=== PATIENT | female | born 1960 | race Caucasian/White ===

== ENCOUNTER 2017-12-04 00:40 | Day surgery (SDC) | payer OTHER ==
[2017-12-04] VITALS (10 sets, daily range): BP systolic 86–129; BP diastolic 54–82
[~2017-12-04] VITALS: Ht 149.9 cm; Wt 85.3 kg
[~2017-12-04 00:40] MED LIST: ACET-1966 PO; AMOX-559 PO; CEP500 PO; CYC10 PO; DILT120C72 PO; DOC100 PO; FLU150 PO; FLUT16SP19; FLUT16SP19 NS; FLUT9.9S; GOLYTE PO; HYDR-6045 RC; LAXATIVE OF CHOICE; LEVO-85 PO; LOR5/325 PO; LOR75 PO; MECL25TA9 PO; METR-160 PO; NITR-105 PO; OFF COUMADIN; ONDA-2 PO; ONDA4TAB PO; OXYC-944 PO; Return to work; TRIA15CR40 TP; WARF-12 PO; WARF4TAB54 PO
[2017-12-04 06:22] LABS: PLATELET COUNT, AUTOMATED 243 K/uL (150-450)
[2017-12-04 06:39] LABS: INR 1.01
[2017-12-04] MEDS ORDERED: NORMOSOL R SOLN(*) 1000 ML BAG 1,000 ML IV PRN (06:45)
[2017-12-04] MEDS ORDERED: FAMOTIDINE 20 MG TAB PO ONE (06:45)
[2017-12-04] MEDS ORDERED: MIDAZOLAM 2 MG/2 ML VIAL IVP ONE (06:45)
[2017-12-04] MEDS ORDERED: AMPICILLIN/SULBACT (*) 3 GM VL 3 GM in NS(*) 0.9% 100 ML BAG 100 ML IVPB ONE (06:45)
[2017-12-04] MEDS ORDERED: LIDOCAINE/SOD BICARB 8.4% SYR ID ONE (06:45)
[2017-12-04] MEDS ORDERED: LIDOCAINE MPF 1% 5 ML VIAL ONE (07:13)
[2017-12-04] MEDS ORDERED: DEXAMETHASONE SOD 4 MG/ML VIAL ONE (07:13)
[2017-12-04] MEDS ORDERED: ONDANSETRON 4 MG/2 ML VIAL ONE (07:13)
[2017-12-04] MEDS ORDERED: ROCURONIUM BROM 10 MG/ML 10 ML ONE (07:13)
[2017-12-04] MEDS ORDERED: PROPOFOL EMUL(*) 10MG/ML 20 ML 20 ML ONE (07:13)
[2017-12-04] MEDS ORDERED: SUGAMMADEX SOD 200 MG/2 ML SDV ONE (07:13)
[2017-12-04] MEDS ORDERED: fentaNYL CITR 250 MCG/5 ML AMP ONE (07:14)
[2017-12-04] MEDS ORDERED: KETAMINE HCL 200 MG/20 ML MDV ONE (07:16)
[2017-12-04] MEDS ORDERED: ROPIVACAINE 0.5% 20 ML VIAL ONE (07:35)
[2017-12-04] MEDS ORDERED: GLYCOPYRROLATE 0.2 MG/ML SDV ONE (07:45)
[2017-12-04] MEDS ORDERED: INDOCYANINE GREEN 25 MG VIAL IVP ONE (08:06)
[2017-12-04] MEDS ORDERED: OXYC-854 PO (09:51)
[2017-12-04] MEDS ORDERED: DOCU-416 PO (09:51)
--- NOTE | 2017-12-04 09:54 | Short(Outpt) Discharge Summary ---
Discharge Summary Reason for Hosp/Final Diag: (1) Cholelithiasis Status: Chronic Hospital Course & Plan: Colonoscopy with polypectomy x1 and robotic cholecystectomy completed without problems. (2) Diverticulitis of sigmoid colon Status: Resolved Departure Discharge to: Home, Self Care Discharge Instructions Home Meds Active Scripts Docusate Sodium (COLACE) 100 Mg Capsule, 1 CAP PO BID, #30 CAP 0 Refills TAKE WITH A FULL GLASS OF WATER Prov:HUNTER GARZA MD 12/04/17 Oxycodone Hcl/Acet 5/325 Mg (ENDOCET 5-325 TABLET) 1 Each Tablet, 1-2 TAB PO Q4H Y for PAIN, #30 TAB 0 Refills Prov:HUNTER GARZA MD 12/04/17 Peg/Electrolytes (GOLYTELY SOLUTION) 4,000 Ml Soln, 1 GAL PO ONCE, #1 GAL 0 Refills Prov:HUNTER GARZA MD 12/02/17 Warfarin Sodium (WARFARIN SODIUM) 4 Mg Tablet, 4 MG PO QDAY, #90 TAB 2 Refills Prov:ERROL ADAM MD 10/09/17 Reported Medications Acetaminophen (TYLENOL) 325 Mg Tablet, 325 MG PO PRN Y for PAIN, TAB 11/27/17 Fluticasone Prop 50 Mcg Ns (FLONASE 50 MCG NS) 16 Gm Gay.susp, 1 SPRAY NS QDAY , BOT 11/27/17 Follow up Referrals: General Surgery - 12/23/17 @ Surgery, General with Hunter Garza Md You have a follow up appointment scheduled with Dr. Garza on 12/23/17, at 11: 45am. Diet: Regular Activity: As Tolerated Special Instructions: You may remove the white surgical dressings on 12/06/17, then you can shower. After showering, leave the incisions open to air but leave the steristrips in place until they fall off on their own. Do not immerse the incisions for 2 weeks. You can start taking your coumadin on , 12/04/17. Problem Qualifiers (1) Cholelithiasis: Cholelithiasis location: gallbladder Cholecystitis presence: without cholecystitis Biliary obstruction: without biliary obstruction Qualified Codes: K80.20 - Calculus of gallbladder without cholecystitis without obstruction HUNTER GAZRA MD Dec 04, 2017 09:53
[2017-12-04] MEDS ORDERED: PROMETHAZINE 25 MG/ML 1 ML AMP ONE (10:00)
--- NOTE | 2017-12-04 10:02 | Post Operative Progress Note ---
Post Operative Progress Note Date: Dec 04, 2017 Time: 09:54 Surgeon: Marlon Dictation number: [id number] Anesthesia: GETA by Dr. Carlisle Pre-Op Diagnosis: Recent bout of sigmoid diverticulitis Symptomatic gallstones Post-Op Diagnosis: TOYIN Findings: Rectal polyp Sigmoid diverticulosis Excellent bowel prep GB full of large gallstones Procedure(s): Colonoscopy with snare polypectomy x1 Robotic lap sharif Specimen Removed:(May be N/A): Rectal polyp GB and contents Complications: None Fluids: See anesthesia record Estimated Blood Loss: Minimal Date OP Note Dictated: Dec 04, 2017 Time OP Note Dictated: 09:55 HUNTER GARZA MD Dec 04, 2017 10:02
[2017-12-04] MEDS ORDERED: fentaNYL CITR 100 MCG/2 ML AMP ONE ×2 (10:04→10:33)
--- NOTE | 2017-12-04 17:12 | OPERATIVE REPORT 1 ---
EVENT DATE: December 04, 2017 SURGEON: Calixto Mason MD ANESTHESIOLOGIST: Eric Melgar MD ANESTHESIA: General endotracheal anesthesia. PREOPERATIVE DIAGNOSES 1. Recent bout of diverticulitis. 2. Symptomatic gallstones. POSTOPERATIVE DIAGNOSES 1. Recent bout of diverticulitis. 2. Symptomatic gallstones. 3. Rectal polyp. PROCEDURES PERFORMED 1. Colonoscopy with snare polypectomy from rectum. 2. Robotic cholecystectomy. COMPLICATIONS None. CONDITION Stable. BLOOD LOSS Minimal. FINDINGS This patient has sigmoid diverticulosis, and she had a 1 cm semi-pedunculated polyp in her colon, but otherwise her colonoscopy was unremarkable. I was able to make it all the way around into the cecum without any problems. The prep was excellent. The gallbladder was full of stones, but no obvious active inflammation. SPECIMENS 1. Rectal polyp. 2. Gallbladder and contents. INDICATIONS This is a 57-year-old female whom I have been following for over a year with intermittent abdominal pain. It was also around her right flank and back, but she was somewhat reluctant to proceed with cholecystectomy even though ultrasound showed gallstones in her gallbladder. Ultimately after her symptoms persisted, she consented to cholecystectomy. She also had a bout sigmoid diverticulitis six weeks ago, and so she was requesting a colonoscopy as she has never had one. DESCRIPTION OF PROCEDURE The patient was brought to the operating room and placed supine on the operating table. General endotracheal anesthesia was administered. The colonoscope was assessed to ensure it was completely functional. Digital rectal exam was completed and was unremarkable. The colonoscope was lubricated and inserted into the rectum through her anus. I advanced the scope all the way through the cecum without any problems and slowly withdrew the scope. I looked at all mucosal surfaces for any abnormalities. In the sigmoid colon, she had numerous uncomplicated-looking diverticula. In the rectum, there was a 1 cm semi-pedunculated polyp which was removed with the snare. Retroflex view in the rectum revealed no other abnormalities. Total withdrawal time was 10 minutes. I advanced the scope all the way back up into the cecum and then sucked out as much of the CO2 as I could in preparation for the surgery. The scope was withdrawn from her body. Her abdomen was prepped and draped in a sterile fashion. Another timeout was completed. I scrubbed in and then injected 0.5% ropivacaine plain into her infraumbilical skin. I made a curvilinear smiley face type incision in her inferior umbilical rim and dissected down through the dermis and subcutaneous fat. I identified the midline fascia. I made a vertical incision in the midline fascia, but found it difficult to get into her abdomen. Her previous abdominoplasty disrupted her normal anatomy. After multiple attempts, I decided to inject some anesthetic in the left upper quadrant just inferior to the costal margin and lateral to the mid clavicular line. I made an 8 mm incision there and used a Veress needle hooked up to insufflation, penetrated the peritoneal cavity, and insufflated the abdomen to a pressure of 15 mmHg. I then used an optical port and was able to gain entry into her abdominal cavity. Then, I was able to inspect the midline. Using this technique, I was able to more safely get into the abdominal cavity, and I was essentially already there. Once I confirmed I was in the peritoneal cavity, and there were no obvious signs of any entry-related injury, I then placed two interrupted 0 Vicryl sutures transversely through the vertical fascial defect and inserted a 12 mm Malcom type robotic port through this wound and secured it in place with the sutures. I then placed another robotic port in the left mid abdomen half way between the left upper quadrant and the umbilical port and then another 8 mm port in the right mid abdomen. We then positioned the table in reverse Trendelenburg and planed towards the patient's left. We then docked the robot and targeted the robot. We inserted all of the instruments and the cameras. After everything was set up, I scrubbed out and went to the console. I then grasped the fundus of the gallbladder and retracted it towards the patient's right shoulder. The infundibulum was retracted towards the patient's right hip. I used the hook electrocautery and divided the peritoneum over the infundibulum and opened the medial and lateral aspects of the gallbladder. I then cleaned off the peritoneum and subperitoneal contents off the infundibulum down into the critical view. I was then able to clearly identify the cystic duct and cystic arteries which were cleaned off circumferentially. The artery was clipped proximally and distally and divided between clips. Then, the duct was clipped distally with two clips and one clip at the infundibular-cystic duct junction and divided between the upper two clips. I then divided the posterior attachments of the gallbladder and it from the gallbladder fossa. It was then placed in the surgical specimen retrieval bag and removed from the abdomen through the umbilical port site. I irrigated and dried the right upper quadrant. I inspected the gallbladder fossa as well as the cystic duct and artery stumps, and there was no bleeding or bile leaks. I removed all of the irrigation fluid from the right upper quadrant. I then removed all of the robotic instruments and undocked the robot. I removed all of the ports after desufflating the abdomen and then placed a [id number] 0 Vicryl suture through the vertical fascial defect and tied all three of these down with good reapproximation of the fascial edges. The skin at each port site was closed with 4-0 Monocryl subcuticular suture. The skin was cleaned and dried, and Steri-Strips were applied, followed by sterile surgical dressings. The patient was then awakened and extubated in the operating room and transported to the recovery room in stable condition having tolerated the procedure without any apparent problems. CHANDNI
== END 2017-12-04 11:00 | disposition home or self-care (01) ==
LOC: OR 00:40
PROVIDERS: ATTEND Surgery
DX: K80.80 Other cholelithiasis without obstruction (principal); K57.92 Diverticulitis of intestine, part unspecified, without perforation or abscess without bleeding; D12.8 Benign neoplasm of rectum
CPT/HCPCS: 00811; 36415; 45385; 47562; 85025; 85610; 88304; 88305; J0295; J1100; J2001; J2405; J2550; J2704; J2795; J3010; J3490; J7050; S2900

== ENCOUNTER → 2018-04-16 | Outpatient (CLI) | payer OTHER ==
[~2018-04-16] MED LIST changes: +DOCU-416 PO; +OXYC-854 PO; +WARF4TAB15 PO; -WARF4TAB54 PO
--- NOTE | 2018-04-20 12:16 | RADIOLOGY IMAGING REPORT ---
FACILITY: [facility] - [place] PATIENT NAME: LISETTE ARREAGA : [id number] MR: [id number] V: [id number] EXAM DATE: ORDERING PHYSICIAN: ERROL ADAM TECHNOLOGIST: Krystle Vera PROCEDURE:BILATERAL DIGITAL SCREENING MAMMOGRAM WITH CAD ASSISTED INTERPRETATION & 3D TOMOSYNTHESIS COMPARISON:Prior mammograms 03/24/17, 02/27/16, 02/22/15, 01/18/14, 01/08/13, 11/25/11. INDICATIONS:SCREENING FINDINGS: There's predominantly fatty replacement throughout the breasts. The parenchymal pattern has remained stable allowing for difference in mammographic technique & patient positioning. There is no evidence of malignant appearing mass, malignant appearing calcifications or other secondary sign of malignancy in either breast. DIAGNOSTIC CATEGORY 1--NEGATIVE. RECOMMENDATIONS: ROUTINE MAMMOGRAM AND CLINICAL EVALUATION. IMPRESSION: BIRADS 1: Negative. No significant abnormality is seen. Dictated by: Viridiana Pradhan M.D. on 04/20/2018 at 10:31 Transcribed by: TOÑITO on 04/20/2018 at 10:45 Approved by: Viridiana Pradhan M.D. on 04/20/2018 at 12:15 [facility]
== END ==
LOC: MAMO 01:20
PROVIDERS: ATTEND Internal Medicine
DX: Z12.31 Encounter for screening mammogram for malignant neoplasm of breast (principal)
CPT/HCPCS: 77063; 77067

== ENCOUNTER → 2018-04-24 | Outpatient (CLI) | payer OTHER ==
--- NOTE | 2018-04-24 12:14 | RADIOLOGY IMAGING REPORT ---
FACILITY: [facility] - [place] PATIENT NAME: Cici Combs : 1960 MR: [id number] V: [id number] EXAM DATE: ORDERING PHYSICIAN: CARLYN STRAUSS TECHNOLOGIST: Location: [facility] [place] Patient: Cici Combs : 1960 Visit/Account:[id number] Date of Sevice: 04/24/2018 ABDOMEN PELVIS ESWL CYSTO W/O HISTORY: Kidney stones TECHNIQUE: Axial images acquired through the abdomen/pelvis. Coronal and sagittal reformatting also performed. No IV contrast administered. Dose Lowering Technique One of the following dose optimization techniques was utilized in the performance of this exam: Autom ated exposure control; adjustment of the mA and/or kV according to the patient's size; or use of an i terative reconstruction technique. Specific details can be referenced in the facility's radiology C T exam operational policy. COMPARISON: October 27, 2017 FINDINGS: Visualized lung bases: Negative. Hepatobiliary: Cholecystectomy Spleen: Negative. Adrenals: Negative. Pancreas: Negative. Kidneys ureters and bladder: There is a 4 mm nonobstructing calculus mid pole calyx of the left kidne y. No calculi identified in the right renal collecting system. No evidence of hydronephrosis or hyd roureter. Bladder wall is mildly thickened although could be related to underdistention with urine Genitalia: Hysterectomy GI: There Is extensive diverticulosis left-sided colon although no CT evidence of acute diverticuliti s Vessels/spaces/nodes: Negative. Bones/soft tissues: There is a bilobed appearing periumbilical hernia containing fat. There is an a dditional tiny ventral hernia just to left of midline below the level the umbilicus also containing f at. There are spondylotic changes of the thoracal lumbar spine. Sclerotic changes are seen at the SI joints bilaterally which may be arthritic Additional findings: None pertinent. IMPRESSION: 4 mm nonobstructing calculus mid pole calyx of the left kidney Ladder wall is mildly thickened although could be related to underdistention Extensive diverticulosis left-sided colon although no CT evidence of acute diverticulitis Periumbilical hernia as described above containing fat. Additional tiny ventral hernia to the left m idline below the umbilicus also containing fat Sclerotic changes at the SI joints could be arthritic in nature. Spondylotic changes of the lumbar spine Report Dictated By: Viridiana Pradhan MD at 04/24/2018 11:36 AM Report E-Signed By: Viridiana Pradhan MD at 04/24/2018 12:10 PM MARYN:JUSTINO
== END ==
LOC: CT 02:13
PROVIDERS: ATTEND Urology
DX: N20.0 Calculus of kidney (principal); K57.30 Diverticulosis of large intestine without perforation or abscess without bleeding; Z90.49 Acquired absence of other specified parts of digestive tract; K42.9 Umbilical hernia without obstruction or gangrene; K43.9 Ventral hernia without obstruction or gangrene; M47.895 Other spondylosis, thoracolumbar region
CPT/HCPCS: 74176

== ENCOUNTER → 2019-05-31 | Outpatient (CLI) | payer OTHER ==
[~2019-05-31] MED LIST changes: +AZIT-1 PO; +BENZ200C15 PO; -METR-160 PO; +METR500T15 PO; +TERB250T74 PO
--- NOTE | 2019-06-01 10:47 | RADIOLOGY IMAGING REPORT ---
FACILITY: [facility] - [place] PATIENT NAME: LISETTE ARREAGA : [id number] MR: [id number] V: [id number] EXAM DATE: ORDERING PHYSICIAN: BASIM SHAVER TECHNOLOGIST: Camryn Smith PROCEDURE: BILATERAL DIGITAL SCREENING MAMMOGRAM WITH CAD ASSISTED INTERPRETATION & 3D TOMOSYNTHESIS REASON FOR STUDY: Screening. FAMILY HISTORY OF BREAST CANCER: BREAST PROCEDURES/TREATMENTS: COMPARISON: 04/16/18, priors to 01/08/2013. VIEWS OBTAINED: 2D & 3D full field CC & MLO projections. BREAST DENSITY: The breast density is almost completely fatty replaced. MAMMOGRAM FINDINGS: There are no mammographic findings concerning for malignancy. No significant interval change. IMPRESSION: BIRADS 1: Negative. DIAGNOSTIC CATEGORY 1--NEGATIVE. RECOMMENDATIONS: ROUTINE MAMMOGRAM AND CLINICAL EVALUATION IN 1YR. Dictated by: Ezequiel Stratton on 06/01/2019 at 9:04 Transcribed by: TOÑITO on 06/01/2019 at 10:10 Approved by: Ezequiel Stratton on 06/01/2019 at 10:42 [facility]
== END ==
LOC: MAMO 00:55
PROVIDERS: ATTEND Nurse Practitioner Family
DX: Z12.31 Encounter for screening mammogram for malignant neoplasm of breast (principal); Z80.3 Family history of malignant neoplasm of breast
CPT/HCPCS: 77063; 77067